=== PATIENT | male | born 1955 | race Caucasian/White ===

== ENCOUNTER 2019-01-03 01:08 | Emergency (ER) | payer OTHER ==
[2019-01-03] MEDS ORDERED: HYDROmorphone 1 MG/ML Syringe IM ONE (01:40)
[2019-01-03] MEDS ORDERED: Ketorolac 30 MG/ML SDV IM ONE (01:40)
--- NOTE | 2019-01-03 01:50 | EDM.PDOC ---
ED HPI GENERAL MEDICAL PROBLEM - General Chief Complaint: Back Pain or Injury Stated Complaint: BACK PAIN Time Seen by Provider: 01/03/19 01:33 Source of Information: Reports: Patient History Limitations: Reports: No Limitations - History of Present Illness INITIAL COMMENTS - FREE TEXT/NARRATIVE: This gentleman complains of severe pain to the right buttocks going down the back of the right thigh and eventually around to the top of the right foot. He said it began about 10 days ago but it's gotten much worse over the past 2 days. About a year ago he had an episode of this and an MRI showed a bulging disc. He's taking a lot of Advil for this but is not helping any. He went to the chiropractor earlier today but that didn't help. He denies any kind of leg weakness and denies any kind of bladder or bowel problems. Rates the pain as 10 out of 10 Right Lower Back Pain Score (Numeric/FACES): 10 - Related Data Allergies Allergy/AdvReac Type Severity Reaction Status Date / Time No Known Allergies Allergy Verified 01/03/19 01:22 Home Meds: Home Meds NK [No Known Home Meds] 01/03/19 [History] Past Medical History Cardiovascular History: Reports: High Cholesterol - Infectious Disease History Infectious Disease History: Reports: Chicken Pox, Measles, Mumps Social & Family History - Tobacco Use Smoking Status *Q: Never Smoker Second Hand Smoke Exposure: No - Caffeine Use Caffeine Use: Reports: Coffee, Soda - Recreational Drug Use Recreational Drug Use: No ED ROS GENERAL - Review of Systems Review Of Systems: ROS reveals no pertinent complaints other than HPI. ED EXAM,LOWER BACK PAIN/INJURY - Physical Exam Exam: See Below Exam Limited By: Other (This man is standing for the entire time pain is much worse when he tries to sit down therefore things such as straight leg raise and reflexes can't be done.) General Appearance: Alert, WD/WN, Moderate Distress Respiratory/Chest: Lungs Clear Cardiovascular: Regular Rate, Rhythm Back Exam: Other (The low back and area around the right iliac crest and right buttocks was palpated and no obvious spasms were felt but it's a very limited exam area) Neurological: Other (The patient is standing the entire time he's shifting around from one leg to the other and don't take detect any kind of leg weakness. He has generally a normal gait although he's very slow and careful in his walk.) Course - Vital Signs Last Recorded V/S: Last Vital Signs Temp 36.0 C 01/03/19 01:21 Pulse 71 01/03/19 01:21 Resp 16 01/03/19 01:21 BP 179/98 H 01/03/19 01:21 Pulse Ox 98 01/03/19 01:21 - Orders/Labs/Meds Meds: Medications Discontinued Medications Generic Name Dose Route Start Last Admin Trade Name Barrie PRN Reason Stop Dose Admin Hydromorphone HCl 1 mg 01/03/19 01:40 01/03/19 01:48 Dilaudid IM 01/03/19 01:41 1 mg ONETIME ONE Administration Ketorolac Tromethamine 60 mg 01/03/19 01:40 01/03/19 01:48 Toradol IM 01/03/19 01:41 60 mg ONETIME ONE Administration - Re-Assessments/Exams Free Text/Narrative Re-Assessment/Exam: 01/03/19 07:02 Patient received an injection of 1 mg Dilaudid I believe that once in his right hip and they gave him a great deal of pain which resolved after several minutes. He also received 60 mg of Toradol and the left buttocks. At the time of discharge she seems to have gotten some relief. Departure - Departure Time of Disposition: 01:50 Disposition: Home, Self-Care 01 Condition: Fair Clinical Impression: Sciatica - Discharge Information Instructions: Sciatica Referrals: PCP,None [Primary Care Provider] - Forms: ED Department Discharge Additional Instructions: In the emergency department you received an intra-muscular injection of Dilaudid 1 mg and Toradol 60 mg. Dilaudid is a strong opiate painkiller and Toradol is similar to an injectable Advil. For continued pain control use Percocet 5/325 (#20 tablets) one or 2 every 4 hours this medication contains Tylenol said to take any extra Tylenol with it but you could continue to use Advil. For muscle spasms take Flexeril 10 mg 3 times daily, #15. This medication also causes sedation and can impair driving or operating machinery. Dilaudid and Percocet cause sedation and can impair driving so you won't be able to drive while under the influence of these medications. Contact Dr. Chakraborty in the morning about a repeat MRI. If you suddenly have leg weakness or bladder problems such as the inability to urinate or incontinence of stool, those are big emergencies and you need to return to the emergency room immediately.
== END 2019-01-03 02:25 | disposition home or self-care (01) ==
LOC: JP.ED 01:08
DX: M54.41 Lumbago with sciatica, right side (principal)
CPT/HCPCS: 96372; 99283; J1170; J1885

== ENCOUNTER 2020-07-15 08:49 | Emergency (ER) | payer OTHER ==
--- NOTE | 2020-07-15 09:01 | EDM.PDOC ---
ED HPI GENERAL MEDICAL PROBLEM - General Stated Complaint: HEART PAIN HAD HEART ATTACK 3 WEEKS AGO Time Seen by Provider: 07/15/20 09:07 Source of Information: Reports: Patient, Family, RN Notes Reviewed History Limitations: Reports: No Limitations - History of Present Illness INITIAL COMMENTS - FREE TEXT/NARRATIVE: 64-year-old gentleman presents emergency department today with complaint of left arm pain, he is about 3 weeks out from what he describes as a non-ST elevation myocardial infarction underwent cardiac catheterization resulting in stenting x1. He states couple of days ago he was raking had some discomfort in his left arm he did resolve with rest however it has been returning he has had this same event a couple of times just does not feel right no particular chest discomfort no nausea or vomiting no shortness of breath. He did call his psychologist research assistant today recommend report to the emergency department for further evaluation he follows with cardiology [facility]. He is chest pain-free at this time Left Arm Pain Score (Numeric/FACES): 1 - Related Data Allergies Allergy/AdvReac Type Severity Reaction Status Date / Time No Known Allergies Allergy Verified 07/15/20 09:09 Home Meds: Home Meds Ascorbic Acid [Acerola C] 500 mg PO DAILY 07/15/20 [History] Aspirin 81 mg PO DAILY 07/15/20 [History] Cholecalciferol (Vitamin D3) [Vitamin D3] 25 mcg PO DAILY 07/15/20 [History] EPINEPHrine [Epinephrine] 1 dose SUBCUT ASDIRECTED 07/15/20 [History] Ezetimibe [Zetia] 10 mg PO BEDTIME 07/15/20 [History] Metoprolol Succinate 25 mg PO DAILY 07/15/20 [History] Multivitamin 1 tab PO DAILY 07/15/20 [History] Prasugrel [Effient] 10 mg PO DAILY 07/15/20 [History] Pravastatin Sodium 5 mg PO ASDIRECTED 07/15/20 [History] Past Medical History Cardiovascular History: Reports: CAD, High Cholesterol, Hypertension, [place] - Infectious Disease History Infectious Disease History: Reports: Chicken Pox, Measles, Mumps Social & Family History - Caffeine Use Caffeine Use: Reports: Coffee, Soda ED ROS GENERAL - Review of Systems Review Of Systems: See Below Constitutional: Reports: No Symptoms HEENT: Reports: No Symptoms Respiratory: Reports: No Symptoms Cardiovascular: Reports: Chest Pain GI/Abdominal: Reports: No Symptoms ED EXAM, GENERAL - Physical Exam Exam: See Below Exam Limited By: No Limitations General Appearance: Alert, WD/WN, No Apparent Distress Respiratory/Chest: No Respiratory Distress, Lungs Clear, Normal Breath Sounds, No Accessory Muscle Use, Chest Non-Tender Cardiovascular: Regular Rate, Rhythm, No Murmur GI/Abdominal: Soft, Non-Tender Extremities: No Pedal Edema #1 Interpretation EKG Date: 07/15/20 Time: 09:00 Rhythm: NSR [place]: LAD-Left [place] Deviation P-Wave: Present QRS: Normal ST-T: Normal QT: Normal Comparison: NA - No Prior EKG Course - Vital Signs Last Recorded V/S: Last Vital Signs Temp 97.1 F 07/15/20 09:05 Pulse 65 07/15/20 09:25 Resp 21 H 07/15/20 09:25 BP 125/73 07/15/20 09:25 Pulse Ox 94 L 07/15/20 09:25 - Orders/Labs/Meds Orders: Active Orders 24 hr Category Date Time Status Cardiac Monitoring [RC] .As Directed Care 07/15/20 09:06 Active EKG Documentation Completion [RC] ASDIRECTED Care 07/15/20 09:07 Active Peripheral IV Care [RC] . DIRECTED Care 07/15/20 09:07 Active Sodium Chloride 0.9% [Saline Flush] Med 07/15/20 09:06 Active 10 ml FLUSH ASDIRECTED PRN Peripheral IV Insertion Adult [OM.PC] Stat Oth 07/15/20 09:06 Ordered Saline Lock Insert [OM.PC] Stat Oth 07/15/20 09:06 Ordered EKG 12 Lead [EK] Stat Ther 07/15/20 09:07 Ordered Medication Orders Sodium Chloride (Sodium Chloride 0.9% 10 Ml Syringe) 10 ml FLUSH ASDIRECTED PRN PRN Reason: Keep Vein Open Last Admin: 07/15/20 09:17 Dose: 10 ml Documented by: DARRIUS Labs: Laboratory Tests 07/15/20 07/15/20 07/15/20 Range/Units 09:10 09:10 09:10 WBC 5.5 (4.5-11.0) K/uL RBC 5.14 (4.30-5.90) M/uL Hgb 14.7 (12.0-15.0) g/dL Hct 43.2 (40.0-54.0) % MCV 84 (80-98) fL MCH 29 (27-31) pg MCHC 34 (32-36) % Plt Count 290 (150-400) K/uL Neut % (Auto) 61 (36-66) % Lymph % (Auto) 30 (24-44) % [place] % (Auto) 6 (2-6) % Eos % (Auto) 2 (2-4) % Baso % (Auto) 1 (0-1) % ESR 14 (0-20) mm/hr Sodium 140 (140-148) mmol/L Potassium 4.3 (3.6-5.2) mmol/L Chloride 102 (100-108) mmol/L Carbon Dioxide 27 (21-32) mmol/L Anion Gap 10.9 (5.0-14.0) mmol/L BUN 21 H (7-18) mg/dL Creatinine 1.0 (0.8-1.3) mg/dL Est Cr Clr Drug Dosing 84.07 mL/min Estimated GFR (MDRD) > 60 (>60) Glucose 108 H (74-106) mg/dL Calcium 9.0 (8.5-10.1) mg/dL Total Bilirubin 0.5 (0.2-1.0) mg/dL AST 21 (15-37) U/L ALT 41 (12-78) U/L Alkaline Phosphatase 99 (46-116) U/L Troponin I < 0.017 (0.000-0.056) ng/mL Total Protein 7.3 (6.4-8.2) g/dL Albumin 4.0 (3.4-5.0) g/dL Globulin 3.3 (2.3-3.5) g/dL Albumin/Globulin Ratio 1.2 (1.2-2.2) Meds: Medications Generic Name Dose Route Start Last Admin Trade Name Freq PRN Reason Stop Dose Admin Sodium Chloride 10 ml 07/15/20 09:06 07/15/20 09:17 Sodium Chloride 0.9% 10 Ml Syringe FLUSH 10 ml ASDIRECTED PRN Administration Keep Vein Open Discontinued Medications Generic Name Dose Route Start Last Admin Trade Name Freq PRN Reason Stop Dose Admin Aspirin 324 mg 07/15/20 09:06 07/15/20 09:17 Aspirin 81 Mg Tab.Chew PO 07/15/20 09:07 324 mg ONETIME ONE Administration Departure - Departure Time of Disposition: 10:34 Disposition: Home, Self-Care 01 Condition: Fair Clinical Impression: Atypical chest pain Instructions: Nonspecific Chest Pain, Adult, [id number] Referrals: Heriberto Chakraborty MD [Primary Care Provider] - Additional Instructions: Please contact your psychologist research assistant for further evaluation and treatment call return to the emergency department worsening of symptoms Sepsis Event Note (ED) - Focused Exam Vital Signs: Vital Signs Temp Pulse Resp BP Pulse Ox 07/15/20 09:25 65 21 H 125/73 94 L 07/15/20 09:05 97.1 F 65 18 145/80 H 98 - My Orders Last 24 Hours: My Active Orders 07/15/20 09:06 Cardiac Monitoring [RC] .As Directed Sodium Chloride 0.9% [Saline Flush] 10 ml FLUSH ASDIRECTED PRN Peripheral IV Insertion Adult [OM.PC] Stat Saline Lock Insert [OM.PC] Stat 07/15/20 09:07 EKG Documentation Completion [RC] ASDIRECTED Peripheral IV Care [RC] . DIRECTED EKG 12 Lead [EK] Stat - Assessment/Plan Last 24 Hours: My Active Orders 07/15/20 09:06 Cardiac Monitoring [RC] .As Directed Sodium Chloride 0.9% [Saline Flush] 10 ml FLUSH ASDIRECTED PRN Peripheral IV Insertion Adult [OM.PC] Stat Saline Lock Insert [OM.PC] Stat 07/15/20 09:07 EKG Documentation Completion [RC] ASDIRECTED Peripheral IV Care [RC] . DIRECTED EKG 12 Lead [EK] Stat Plan: Assessment Acuity = acute Site and laterality = atypical chest pain Etiology = unknown Manifestations = none Location of injury = Home Lab values = CBC CMP troponin all within normal limits EKG shows no sign of ST elevation or depression chest x-ray shows no acute process Plan I did review lab work with him he has been in contact with his cardiology further work-up may include a transesophageal echo as well as some type of cardiac stress testing This note was dictated using [employer] voice recognition software please call with any questions on syntax or grammar.
[2020-07-15] MEDS ORDERED: Aspirin 81 MG Tab.Chew PO ONE (09:06)
[2020-07-15] MEDS ORDERED: Sodium Chloride 0.9% 10 ML Syringe FLUSH PRN (09:06)
--- NOTE | 2020-07-15 09:41 | CR ---
CHEST: Portable 07/15/2020 at 9:21 AM CLINICAL HISTORY:Chest pain COMPARISON:None FINDINGS: Patient is lordotically positioned. The heart size, pulmonary vascularity and hilar structures are normal. No infiltrate effusion or pneumothorax is seen. IMPRESSION: No acute cardiopulmonary process.
== END 2020-07-15 10:44 | disposition home or self-care (01) ==
LOC: JP.ED 08:49
DX: R07.89 Other chest pain (principal); I25.10 Atherosclerotic heart disease of native coronary artery without angina pectoris; E78.00 Pure hypercholesterolemia, unspecified; I10 Essential (primary) hypertension; I25.2 Old myocardial infarction; Z79.82 Long term (current) use of aspirin; Z79.899 Other long term (current) drug therapy
CPT/HCPCS: 36415; 71045; 80053; 84484; 85025; 85651; 99285; A9270